=== PATIENT | male | born 1955 | race Caucasian/White ===

== ENCOUNTER 2022-05-14 07:41 | Day surgery (SDC) | payer BC ==
[2022-05-11 16:09] VITALS: BMI 28.8
[~2022-05-14 07:41] MED LIST: ALPRAZolam 0.25 MG TAB PO PRN; ALPRAZolam 0.5 MG TAB PO PRN; ASPIRIN 325 MG TAB PO ONE; ATORVASTATIN 80 MG TAB PO ONE; HEPARIN SODIUM,PORCINE 10,000 UNIT in SODIUM CHLORIDE 0.9% 1,000 ML IRRIGATION PRN; HEPARIN SODIUM,PORCINE 2,500 UNIT in SODIUM CHLORIDE 0.9% 250 ML IRRIGATION PRN; NITROGLYCERIN SL TABS 0.4 MG TAB SUBLINGUAL PRN; SODIUM CHLORIDE 0.9% 1,000 ML in EMPTY BAG 1 BAG IV SCH
[2022-05-14] MEDS ORDERED: SODIUM CHLORIDE 0.9% 1,000 ML IV ONE (08:02)
[2022-05-14] MEDS ORDERED: ASPIRIN 81 MG ONE (08:04)
[2022-05-14 08:20] VITALS: RESP 16; TEMP 97.3
[2022-05-14] MEDS ORDERED: VERAPAMIL 2.5 MG/ML 2 ML AMP ONE (08:35)
[2022-05-14] MEDS ORDERED: fentaNYL (PF) 50 MCG/ML 2 ML AMP ONE (08:51)
[2022-05-14] MEDS ORDERED: HEPARIN SODIUM 1,000 UN/ML (10ML VL) ONE (08:52)
[2022-05-14] MEDS ORDERED: MIDAZOLAM 2 MG/2 ML VIAL IV ONE (09:08)
[2022-05-14] MEDS ORDERED: LIDOCAINE 1% INJ 10MG/ML (5 ML VIAL-PF) SQ ONE ×2 (09:08→09:10)
[2022-05-14] MEDS ORDERED: fentaNYL (PF) 50 MCG/ML 2 ML AMP IV ONE (09:08)
[2022-05-14] MEDS ORDERED: VERAPAMIL SYRINGE (5 MG/10 ML) INTRAARTER ONE (09:12)
[2022-05-14] MEDS ORDERED: HEPARIN SODIUM 1,000 UN/ML (10ML VL) IV ONE (09:15)
[2022-05-14] MEDS ORDERED: IOPAMIDOL-370 125ML BTL INJ ONE (09:21)
--- NOTE | 2022-05-14 09:26 | P.CARDCATH ---
Description of Procedure: PROCEDURES PERFORMED: Left heart catheterization, bilateral coronary angiography INDICATION: Abnormal stress test CONSENT:I have discussed the risks, benefits and alternative therapies for the above-mentioned procedure and for both sedation/analgesia as well as necessary blood product administration, if indicated, as they pertain to this patient. The patient has indicated understanding and acceptance of the risks and procedures discussed. PROCEDURE: After the risks, benefits and alternatives of the above mentioned procedure explained in detail with the patient, informed consent was obtained. Patient was taken to the catheterization lab and prepped and draped in usual fashion. 1% lidocaine was used to anesthetize the right radial artery. A 6- Kazakh sheath was placed in the right radial artery using modified Seldinger technique. Left coronary angiography was performed with a 5-Kazakh JL 3.5 catheter and right coronary angiography was performed with a 5-Kazakh JR5 catheter in various views. A 5-Kazakh FR5 catheter was inserted into the left ventricle and pressure measurements were obtained. The right radial sheath was removed and a TR band was placed with hemostasis achieved. The patient tolerated the procedure well. Patient was transported back to the post catheterization holding area in stable condition. Conscious Sedation: Patient was monitored under the direct supervision of vision of myself for conscious sedation using Versed and fentanyl for a total duration of 10 minutes HEMODYNAMICS: Aortic: 122/78 LV: 130/5, LVEDP 6 SELECTIVE CORONARY ARTERIOGRAPHY: LEFT MAIN: The left main is a large caliber vessel which bifurcates into the LAD and circumflex. There is no significant stenosis. LEFT ANTERIOR DESCENDING CORONARY ARTERY: LAD is a large caliber vessel which wraps around to the apex. There is no significant stenosis. LEFT CIRCUMFLEX CORONARY ARTERY: Left circumflex is a moderate caliber vessel with mid circumflex luminal irregularities up to 20%. RIGHT CORONARY ARTERY: The right coronary artery is a large caliber vessel which gives off a PDA and PLV branch and is the dominant vessel. There is a mid RCA 20-30% stenosis and otherwise normal. FINAL IMPRESSION: 1. Relatively normal coronary arteries with only mild luminal irregularities of the circumflex and RCA, 20-30% 2. Normal left sided filling pressures PLAN: 1. Aggressive risk factor modification per most recent ACC/AHA guidelines. 2. Follow-up in the office in 1-2 weeks.
[2022-05-14 11:53] VITALS: BP 139/82; PULSE 67
== END 2022-05-14 12:09 | disposition home or self-care (01) ==
LOC: CATHCVL 07:41
PROVIDERS: ATTEND Internal Medicine
DX: I25.10 Atherosclerotic heart disease of native coronary artery without angina pectoris (principal); I11.0 Hypertensive heart disease with heart failure; I50.32 Chronic diastolic (congestive) heart failure; R06.00 Dyspnea, unspecified; R07.9 Chest pain, unspecified
CPT/HCPCS: 93458; C1769; C1894; J2250; J2001; J3010; J1644; Q9967

== ENCOUNTER → 2024-06-05 | Outpatient (CLI) | payer MEDICARE, BC ==
--- NOTE | 2024-06-05 17:09 | CT ---
CT right knee, YARELI protocol. HISTORY: Knee pain COMPARISON: None TECHNIQUE: Multiple axial images are obtained through the lower extremities without use of IV contras t material. The exam was performed according to the YARELI protocol FINDINGS: There is moderate narrowing, mild hypertrophic spurring and moderate subchondral sclerosis in the med ial compartment knee consistent with moderate osteoarthritis. There is mild narrowing of the lateral compartment joint space. The patellofemoral compartment joint space is well preserved although there is mild hypertrophic spurring of the patella and femoral condyle. There is mild narrowing, subchondral sclerosis and cyst formation in the right hip. Minimal narrowing and subchondral sclerosis seen in the left hip. The ankles are normal and symmetrical without osteoarthritic change, fracture, dislocation or focal i ntraosseous abnormality. IMPRESSION: 1. Moderate osteoarthritis of the medial compartment knee. 2. Mild osteoarthritis of the patellofemoral and lateral compartments of the right knee. 3. Mild osteoarthritis of the right hip and minimal osteoporosis of the left hip. 4. No significant abnormality of the ankles bilaterally. 5. Moderate to marked osteoarthritis of the medial compartment of the left knee and mild osteoarthrit is of the lateral compartment of the left knee. [facility], Workstation: [id number], 06/05/2024 5:06 PM
--- NOTE | 2024-06-06 08:13 | XR ---
EXAMINATION TYPE: XR chest 2V DATE OF EXAM: 06/05/2024 4:11 PM COMPARISON: None CLINICAL INDICATION: Male, 68 years old with history of R09.89 OTH SYMPTOMS AND SIGNS I; [facility] TECHNIQUE: XR chest 2V Frontal and lateral views of the chest. FINDINGS: Lungs/Pleura: There is flattening of the diaphragm with increased lucency of the lungs. No evidence o f pneumothorax, pleural effusion or focal consolidation. Pulmonary vascularity: Unremarkable. Heart/mediastinum: Cardiomediastinal silhouette is unremarkable. Musculoskeletal: No acute osseous pathology. IMPRESSION: 1. No acute cardiopulmonary disease process. 2. COPD changes. [facility], , 06/06/2024 8:11 AM
== END | disposition home or self-care (01) ==
LOC: RADCTMAIN 15:22
PROVIDERS: ATTEND Orthopaedic Surgery
DX: M21.161 Varus deformity, not elsewhere classified, right knee (principal); R09.89 Other specified symptoms and signs involving the circulatory and respiratory systems; M81.0 Age-related osteoporosis without current pathological fracture; M16.11 Unilateral primary osteoarthritis, right hip; M17.0 Bilateral primary osteoarthritis of knee
CPT/HCPCS: 71046

== ENCOUNTER → 2024-06-26 | Outpatient (CLI) | payer MEDICARE, BC ==
[2024-06-26 10:26] LABS: Partial Thromboplastin Time 22.6 sec (22.0-30.0); Prothrombin Time 10.7 sec (10.0-12.5)
[2024-06-26 19:04] LABS: HCT 45.3 % (39.6-50.0); HGB 14.7 g/dL (13.0-17.0); MCH 31.2 pg (27.0-32.0); MCHC 32.5 g/dL (32.0-37.0); MCV 96.2 FL (80.0-97.0); Mean Platelet Volume 9.4 FL (9.5-12.2); NRBC Per 100 WBC 0 X 10*3/uL (0.00-0.01); Platelet Count 369 X 10*3/uL (140-440); RBC 4.71 X 10*6/uL (4.40-5.60); RDW 12.1 % (11.5-14.5); WBC 5.91 X 10*3/uL (4.50-10.00)
[2024-06-26 19:39] LABS: ALT 19 U/L (10-49); AST 23 U/L (14-35); Albumin 4.1 g/dL (3.8-4.9); Albumin/Globulin Ratio 1.46 Ratio (1.60-3.17); Alkaline Phosphatase 84 U/L (41-126); BUN/Creat Ratio 15.44 Ratio (12.00-20.00); Blood Urea Nitrogen 13.9 mg/dL (9.0-27.0); Chloride 102 mmol/L (96-109); Chol/HDL Ratio 2.87 Ratio; Globulin 2.8 g/dL (1.6-3.3); Glucose 100 mg/dL (70-110); LDL Cholesterol,Calculated 93.1 mg/dL (0.0-131.0); Potassium 4.8 mmol/L (3.5-5.5); Sodium 140 mmol/L (135-145); Total Bilirubin 0.4 mg/dL (0.3-1.2); Total Protein 6.9 g/dL (6.2-8.2); VLDL Calculation 15.84 mg/dL (5.00-40.00)
== END | disposition home or self-care (01) ==
LOC: LABPAT 09:14
PROVIDERS: ATTEND Orthopaedic Surgery
DX: Z01.812 Encounter for preprocedural laboratory examination (principal); Z13.220 Encounter for screening for lipoid disorders; Z22.322 Carrier or suspected carrier of Methicillin resistant Staphylococcus aureus; E11.9 Type 2 diabetes mellitus without complications; M17.11 Unilateral primary osteoarthritis, right knee
CPT/HCPCS: 80053; 80061; 83036; 85027; 85610; 85730; 87070; 93005

== ENCOUNTER 2024-07-13 08:01 | Day surgery (SDC) | payer MEDICARE, BC ==
[~2024-07-13 08:01] MED LIST changes: -ALPRAZolam 0.25 MG TAB PO PRN; -ALPRAZolam 0.5 MG TAB PO PRN; -ASPIRIN 325 MG TAB PO ONE; -ATORVASTATIN 80 MG TAB PO ONE; -HEPARIN SODIUM,PORCINE 10,000 UNIT in SODIUM CHLORIDE 0.9% 1,000 ML IRRIGATION PRN; -HEPARIN SODIUM,PORCINE 2,500 UNIT in SODIUM CHLORIDE 0.9% 250 ML IRRIGATION PRN; +HYDROmorphone 0.5 MG/0.5 ML SYRINGE IVP PRN; -NITROGLYCERIN SL TABS 0.4 MG TAB SUBLINGUAL PRN; -SODIUM CHLORIDE 0.9% 1,000 ML in EMPTY BAG 1 BAG IV SCH; +TRANEXAMIC 1,000 MG/100ML-NACL 1,000 MG in SALINE 1 100ML.BAG IV PRN; +TRANEXAMIC 1,000 MG/100ML-NACL 1,000 MG in SALINE 1 100ML.BAG IVPB PRN
[2024-07-13] MEDS: IV FLUID CONTINUATION 1,000 ML IV ONE (08:20)
[2024-07-13] MEDS: oxyCODONE ER 10 MG TAB.ER.12H PO PRN (08:56)
[2024-07-13] MEDS: ACETAMINOPHEN TAB 500 MG TAB PO PRN (08:57)
[2024-07-13] MEDS: KETOROLAC 15 MG/ML 1 ML VIAL IVP PRN (08:57)
[2024-07-13] MEDS: FAMOTIDINE 20 MG/2 ML VIAL IVP PRN (08:57)
[2024-07-13] MEDS: DOCUSATE 100 MG CAP PO PRN (08:57)
[2024-07-13] MEDS: DEXAMETHASONE SOD PHOSPHATE 10 MG/ML 1 ML VIAL IV PRN (08:57)
[2024-07-13] MEDS: LACTATED RINGERS 1,000 ML IV SCH (08:58)
[2024-07-13] MEDS: ONDANSETRON 4 MG/2 ML VIAL IVP PRN (08:58)
[2024-07-13] MEDS: MIDAZOLAM 2 MG/2 ML VIAL IV PRN (09:22)
[2024-07-13] MEDS: fentaNYL (PF) 50 MCG/ML 2 ML AMP IVP STA (09:22)
[2024-07-13] MEDS ORDERED: KETAMINE HCL IN 0.9 % NACL 50 MG/5 ML SYRINGE ONE (09:36)
[2024-07-13] MEDS ORDERED: TRANEXAMIC 1,000 MG/100ML-NACL PREMIX BAG ONE (09:36)
[2024-07-13] MEDS ORDERED: LIDOCAINE 1% INJ 10MG/ML (20 ML MDV) ONE (09:36)
[2024-07-13] MEDS ORDERED: PROPOFOL 10 MG/ML 20 ML VIAL IV ONE (09:36)
[2024-07-13] MEDS ORDERED: GLYCOPYRROLATE 0.2 MG/ML 2 ML VIAL ONE (09:36)
[2024-07-13] MEDS ORDERED: ROCURONIUM 10 MG/ML (5 ML VIAL) IV ONE (09:36)
[2024-07-13] MEDS ORDERED: DEXAMETHASONE SOD PHOSPHATE 4 MG/ML 1 ML VIAL ONE (09:36)
[2024-07-13] MEDS ORDERED: SUCCINYLCHOLINE CHLORIDE 200 MG/10 ML VIAL IV ONE (09:36)
[2024-07-13] MEDS ORDERED: MIDAZOLAM 2 MG/2 ML VIAL ONE (09:36)
[2024-07-13] MEDS ORDERED: fentaNYL (PF) 50 MCG/ML 2 ML AMP ONE (09:36)
[2024-07-13] MEDS ORDERED: PHENYLEPHRINE-0.9% NACL SYG 1,000 MCG/10 ML SYRINGE ONE (09:36)
[2024-07-13] MEDS ORDERED: ROPIVACAINE 5 MG/ML 30 ML VIAL ONE (09:36)
[2024-07-13] MEDS ORDERED: NEOSTIGMINE 1 MG/ML 10 ML VIAL ONE (09:36)
[2024-07-13] MEDS: LACTATED RINGERS 1,000 ML IV ONE (09:57)
[2024-07-13] MEDS: ROPIVACAINE/EPI/CLONIDINE/KET 50 ML SYRINGE MISCELLANE PRN (10:05)
[2024-07-13] MEDS ORDERED: MAGNESIUM HYDROXIDE 2,400 MG/30 ML CUP PO PRN (11:27)
[2024-07-13] MEDS ORDERED: TEMAZEPAM 15 MG CAP PO PRN (11:27)
[2024-07-13] MEDS ORDERED: NA PHOS,M-B/NA PHOS,DI-BA 133 ML ENEMA RECTAL PRN (11:27)
[2024-07-13] MEDS ORDERED: bisacodyL 10 MG SUPP RECTAL PRN (11:27)
[2024-07-13] MEDS ORDERED: NALOXONE 0.4 MG/ML 1 ML VIAL IV PRN (11:27)
[2024-07-13] MEDS ORDERED: ONDANSETRON 4 MG/2 ML VIAL IVP PRN (11:27)
[2024-07-13] MEDS ORDERED: diazePAM 5 MG TAB PO PRN ×2 (11:27)
[2024-07-13] MEDS ORDERED: HYDROcodone/APAP 10-325MG 1 EACH TAB PO PRN (11:27)
[2024-07-13] MEDS ORDERED: HYDROmorphone 0.5 MG/0.5 ML SYRINGE IVP PRN ×3 (11:27)
[2024-07-13] MEDS ORDERED: hydrOXYzine pamoate 25 MG CAP PO PRN (11:27)
--- NOTE | 2024-07-13 11:27 | P.OP ---
Date of Procedure: 07/13/24 Preoperative Diagnosis: Severe right knee osteoarthritis Postoperative Diagnosis: Same Procedure(s) Performed: 1. Right total knee arthroplasty 2. Computer assisted musculoskeletal navigation using CT/MRI images Implants: 1. Palmer Triathlon CR Femur Size #6 2. Palmer Triathlon Franklin Tibial Base Size #7 3. [place]e Triathlon CS poly Size #7, 9-mm 4. Mc[place]e Triathlon all poly patella, Size #32 Anesthesia: [place]IN[place]O, regional Surgeon: Giorgio Linder Customer Greeter #1: Tone Anderson Estimated Blood Loss (ml): 100 IV fluids (ml): 800 Pathology: none sent Condition: stable Disposition: PACU Indications for Procedure: I met with the patient preoperatively in the office setting and discussed treatment of their symptomatic knee arthritis. They failed a long course of nonsurgical treatment and elected to proceed with an elective total knee replacement. I discussed the potential risks and complications at length and gave them ample time to ask questions. Risks discussed included: risks from anesthesia, superficial site surgical infection, acute and/or chronic periprosthetic joint infection, delayed wound healing, drainage, wound necrosis, instability, stiffness, stiffness requiring manipulation and/or revision surgery, damage to local blood vessels or nerves, aseptic loosening of the implants, extensor mechanism issues including disruption, patellar maltracking, avascular necrosis etc., continued or worsened knee pain, generalized dissatisfaction with surgical outcome, need for revision surgery, an inability to regain preinjury level of function, DVT, PE, other medical complications, and possibly loss of life or limb. The patient voiced their understanding that while these are the most common complications other less common complications are possible. They provided both their verbal and written consent to go forward with surgery. Operative Findings: Severe tricompartmental osteoarthritis with partially passively correctable varus deformity Description of Procedure: The patient was identified in preoperative holding and the correct operative extremity was verified and marked with a marker. I reviewed the consent form with the patient at length. All of their questions were answered. The patient was given a block by anesthesia. They were then brought back to the operating room. They were transferred onto the operating room table where a general anesthetic, preoperative antibiotics, and tranexamic acid were administered by anesthesia. A tourniquet was applied to the proximal aspect of the operative extremity. The contralateral extremity was padded under the heel and secured to the operating room table with a nonsterile blue towel and tape. The ipsilateral arm was carefully draped across the patient's chest and secured with a pillow and foam. A post was applied over the lateral aspect of the ipsilateral thigh and a bolster was placed under the ipsilateral foot. I verified that the operative extremity was stable and the knee was flexed to 90. The operative extremity was then placed in a leg broussard, nonsterile drapes were applied, and the extremity was prepped and draped sterilely in the standard sterile fashion. Prior to starting surgery timeout was performed identifying the correct patient, operative extremity, and procedure. The leg was then elevated, exsanguinated with an Esmarch bandage, and the tourniquet was inflated. An anterior midline incision was made sharply with a scalpel. Once I had dissected deep to the superficial fascial layer medial and lateral flaps were elevated. A medial parapatellar arthrotomy was created. Upon opening the knee joint there were diffuse arthritic changes in all 3 compartments. The anterior horn of the medial meniscus were sharply released and a medial release was performed around the posterior medial corner of the knee to facilitate retractor placement. The fat pad was excised with electrocautery. The patella was found to be severely arthritic and a provisional cut was made with a sagittal saw to facilitate mobilization of the extensor mechanism during the procedure. Remnants of the ACL and PCL were then excised from the notch. 4 mm pins were then placed within the incision in the medial distal femur and proximal tibia. Arrays were applied to the pins and I verified they were completely tightened. The knee was then registered with the Traxer robot and manipulations in implant position were made to balance the knee and opitmize implant position. Using the Malcolm robotic saw all cuts were made in accordance with our plan. After all bony fragments had been removed the cuts were verified with the planar probe. The tibia was then subluxed forward and sized. The knee was brought into flexion and a lamina veterinary milk specialist was placed to allow removal of the meniscal remnants both medially and laterally as well as posterior osteophytes. Local anesthetic was then infiltrated around the joint capsule. Trial implants were then placed within the knee. Range of motion and collateral ligament tension was then evaluated. Adjustments in implant size and position were then made accordingly. Once the knee was felt to be appropriately balanced the Malcolm pins were removed. The patella was then recut, sized, and punched. A trial patellar button was then placed. With the trial components in place, the patella tracked midline. The femur was then drilled and the trial component removed. The trial tibial component was then appropriately rotated, pinned, and prepared for the keel. All trial components were then removed from the knee. The knee was thoroughly irrigated with pulsatile lavage. Cement was prepared via vacuum mixing in a bowl on the back table. I then hand pressurized cement into the femur and tibia and placed the implants beginning with the tibial base tray and poly liner, femoral component, and finally the patellar button. All extruded cement was removed including from the pin sites. Once the cement had hardened the knee was evaluated one final time with the final polyethylene liner in place. The knee had full extension and flexion and felt stable to varus and valgus stress throughout the arc of motion. The tourniquet was released and with the tourniquet down the patella tracked midline. All bleeders were controlled with electrocautery. The knee was then soaked for 3 minutes with a dilute Betadine soak. The knee was thoroughly irrigated using 3 L of sterile saline and pulsatile lavage. A deep drain was placed. The extensor mechanism was then reapproximated using pop off Vicryl sutures followed by a running barbed suture. The knee was then closed in layers with a 0 strata fix for the deep fascial layer, 2-0 strata fix for the superficial subcutaneous layer and Monocryl and Steri-Strips for the skin. A sterile dressing and drain sponge were applied. I verified that all instrument, sponge, and sharp counts were correct. The patient was then transferred off the operating room table, extubated, and brought to recovery having tolerated the procedure well. Tone Anderson PA-C was required as a skilled animal assistant due to the complexity of surgery for patient positioning, draping, exposure, retraction, closure of wound and application of dressing. PLAN: The patient can weight-bear as tolerated on the operative extremity. DVT prophylaxis with aspirin 81 mg twice a day based on preoperative risk stratification. Follow-up in the office in 2 weeks for wound check and x-rays of the knee including an AP and lateral.
--- NOTE | 2024-07-13 12:13 | P.ANPRN ---
Procedure Note - Anesthesia - Nerve Block Performed Right iPack Single Time Out Performed: Yes Date of Procedure: 07/13/24 Procedure Start Time: Procedure Stop Time: Location of Patient: PreOp Indication: Acute Post-Operative Pain, Analgesia, Requested by Surgeon Sedation Type: Sedate with meaningful contact maintained Preparation: Sterile Prep Position: Left Lateral Catheter: None Needle Types: Pajunk Needle Gauge: 21 Ultrasound used to visualize needle placement: Yes Ultrasound used to observe medication spread: Yes Injectate: 0.5% Ropivacaine (see comment for volume) ([id number] (Resident)) Blood Aspirated: No Pain Paresthesia on Injection Noted: No Resistance on Injection: Normal Image Stored and Saved: Yes Events: Uneventful and Well Tolerated
--- NOTE | 2024-07-13 12:14 | P.ANPRN ---
Procedure Note - Anesthesia - Nerve Block Performed Right Adductor Canal Single Time Out Performed: Yes Date of Procedure: 07/13/24 Procedure Start Time: Procedure Stop Time: :32 Location of Patient: PreOp Indication: Acute Post-Operative Pain, Analgesia, Requested by Surgeon Sedation Type: Sedate with meaningful contact maintained Preparation: Sterile Prep Position: Supine Catheter: None Needle Types: Pajunk Needle Gauge: 21 Ultrasound used to visualize needle placement: Yes Ultrasound used to observe medication spread: Yes Injectate: 0.5% Ropivacaine (see comment for volume) (Ropiv [id number] (Resident)) Blood Aspirated: No Pain Paresthesia on Injection Noted: No Resistance on Injection: Normal Image Stored and Saved: Yes Events: Uneventful and Well Tolerated
--- NOTE | 2024-07-13 12:28 | XR ---
EXAMINATION TYPE: XR knee limited RT DATE OF EXAM: 07/13/2024 12:17 PM COMPARISON: None. CLINICAL INDICATION: Male, 68 years old with history of Evaluation for Postop abnormality and alignme nt, pain TECHNIQUE: 2 view(s) obtained. FINDINGS: Tibial and femoral components have been placed. No acute fractures or dislocations evident. Surgical soft tissue changes are present. IMPRESSION: 1. No acute osseous abnormality right knee post prosthesis placement [facility], , 07/13/2024 12:26 PM
[2024-07-13] MEDS: SODIUM CHLORIDE 0.9% 1,000 ML IV SCH (16:34)
--- NOTE | 2024-07-13 19:00 | P.CONS ---
History of Present Illness - Reason for Consult Consult date: 07/13/24 - Chief Complaint medical management - History of Present Illness 68-year-old male with medical history nicotine use disorder, osteoarthritis presented for elective TKA. Medicine was consulted for medical management. Patient has no complaints at this time, feels very well after surgery. He is tolerating a diet. Otherwise has no complaints. Patient is hemodynamically stable and is on room air. No lab work to review. Postoperative knee x-ray shows no acute osseous abnormality of right knee post prosthesis placement. All Systems reviewed and pertinent positives and negatives noted in HPI, all other symptoms are negative Gen: In NAD, non-toxic HEENT: normocephalic, atraumatic, hearing acuity is intant, mucous membranes moist CVS: perfusing all extremities well, no pitting edema, Respiratory: symmetric chest expansion, no accessory muscle use, GI: soft, NTTP, ND, : no suprapubic tenderness, no CVA tenderness MSK/Derm: no rashes, cyanosis Neuro: CN II-XII intact, no motor weakness, Psych: cooperative, euthymic mood, judgment and insight is intact Assessment/plan: Nicotine use disorder -NRT at request -Cessation counseling, noted in H&P that patient quit in September 2023, but still has high risk of relapse, would recommend ongoing encouragement at cessation and readdressing this with PCP Status post TKA -Pain control per primary team Thank you for this consult. Please reach out with any further questions or concerns. Past Medical History Past Medical History: Hyperlipidemia, Hypertension, Osteoarthritis (OA) Additional Past Medical History / Comment(s): no longer takes BP med, occasional swelling in extremities-not currently History of Any Multi-Drug Resistant Organisms: None Reported Past Surgical History: Heart Catheterization, Hernia Repair Additional Past Surgical History / Comment(s): colonoscopy, cataracts removed Past Anesthesia/Blood Transfusion Reactions: No Reported Reaction Past Psychological History: No Psychological Hx Reported Smoking Status: Former smoker Past Alcohol Use History: Daily Additional Past Alcohol Use History / Comment(s): quit smoking October 10, 2023 1-1 1/2 ppd, couple beers per day Past Drug Use History: None Reported - Past Family History Mother Family Medical History: Cancer Medications and Allergies Home Medications Medication Instructions Recorded Confirmed Type Aspirin [Children's Aspirin] 81 mg PO DAILY 05/11/22 07/13/24 History Furosemide [Lasix] 20 mg PO DAILY 05/11/22 07/13/24 History Nicotine Polacrilex [Nicotine 2 mg BC DIRECTED 07/11/24 07/13/24 History Lozenge] Ibuprofen [Motrin] 400 mg PO Q6HR PRN 07/12/24 07/13/24 History Aspirin 81 mg PO BID #60 tab 07/13/24 Rx Diclofenac Sodium [Voltaren] 75 mg PO BID #60 tab 07/13/24 Rx Docusate [Colace] 100 mg PO BID #60 capsule 07/13/24 Rx HYDROcodone/APAP 5-325MG [[place] 1 - 2 tab PO Q6HR PRN #56 tab 07/13/24 Rx 5-325] Omeprazole [PriLOSEC] 40 mg PO DAILY #30 cap 07/13/24 Rx Allergies Allergy/AdvReac Type Severity Reaction Status Date / Time No Known Allergies Allergy Verified 07/11/24 08:52 Physical Exam Osteopathic Statement: *. No significant issues noted on an osteopathic structural exam other than those noted in the History and Physical/Consult. Vitals: Vital Signs Temp Pulse Resp BP Pulse Ox 07/13/24 13:30 97.9 F 72 17 172/83 93 L 07/13/24 13:15 78 18 149/83 95 07/13/24 13:00 79 16 152/81 96 07/13/24 12:45 84 16 155/81 95 07/13/24 12:30 85 16 159/79 96 07/13/24 12:15 86 16 150/74 98 07/13/24 12:00 92 16 144/75 98 07/13/24 11:54 97.8 F 89 14 160/77 100 07/13/24 09:37 72 16 118/65 95 07/13/24 08:28 97.4 F L 106 H 16 166/88 93 L Intake and Output 07/13/24 07/13/24 07/13/24 06:59 14:59 22:59 Intake Total 1900 250 Output Total 100 Balance 1800 250 Intake: IV 1700 Oral 200 250 Output: Estimated Blood Loss 100 Other: # Voids 1 Weight 93.9 kg
[2024-07-13] MEDS: BENZOCAINE/MENTHOL LOZENG 1 EACH LOZENGE MUCOUS MEM PRN (20:03)
[2024-07-13] MEDS: ASPIRIN 81 MG PO SCH (20:03)
[2024-07-13] MEDS: SENNOSIDES-DOCUSATE SODIUM 1 EACH TAB PO SCH (20:03)
[2024-07-14] MEDS: HYDROcodone/APAP 5-325MG 1 EACH TAB PO PRN (01:24)
[2024-07-14 03:00] VITALS: RESP 16
[2024-07-14 08:01] VITALS: BP 148/70; PULSE 83; TEMP 98.2
--- NOTE | 2024-07-14 08:22 | P.DS ---
Providers Date of admission: 07/13/2024 Attending physician: Giorgio Linder Consults: 07/13/24 11:27 Consult Physician Routine Consulting Provider: Dorota Colon Consult Reason/Comments: post op medical management Do you want consulting provider notified?: Yes Primary care physician: Sally Romero MD Hospital Course: The patient is a very pleasant 68-year-old male who was admitted under my care yesterday and underwent an uncomplicated total knee replacement. Following surgery he was transferred to the orthopedic floor. He received 2 doses of postoperative antibiotics. He was transitioned from IV to oral pain medication. He was started on aspirin for DVT prophylaxis. He was seen on postoperative day #1 and was doing well. He was alert and oriented. He was in no apparent distress. A focused exam of the operative extremity was conducted. There was an intact dressing with no drainage or strikethrough. There was moderate swelling in the knee. His thigh and calf are soft. Femoral nerve function was intact. He was able to actively plantarflex and dorsiflex his ankle and his toes. He worked with physical therapy and did well. He was ultimately cleared for discharge home. Plan - Discharge Summary Discharge Rx Participant: No New Discharge Prescriptions: New Diclofenac Sodium [Voltaren] 75 mg PO BID #60 tab Omeprazole [PriLOSEC] 40 mg PO DAILY #30 cap Aspirin 81 mg PO BID #60 tab Docusate [Colace] 100 mg PO BID #60 capsule HYDROcodone/APAP 5-325MG [[place] 5-325] 1 - 2 tab PO Q6HR PRN #56 tab PRN Reason: Pain No Action Furosemide [Lasix] 20 mg PO DAILY Nicotine Polacrilex [Nicotine Lozenge] 2 mg BC DIRECTED Ibuprofen [Motrin] 400 mg PO Q6HR PRN PRN Reason: Pain Aspirin [Children's Aspirin] 81 mg PO DAILY Discharge Medication List Aspirin [Children's Aspirin] 81 mg PO DAILY 05/11/22 [History] Furosemide [Lasix] 20 mg PO DAILY 05/11/22 [History] Nicotine Polacrilex [Nicotine Lozenge] 2 mg BC DIRECTED 07/11/24 [History] Ibuprofen [Motrin] 400 mg PO Q6HR PRN 07/12/24 [History] Aspirin 81 mg PO BID #60 tab 07/13/24 [Rx] Diclofenac Sodium [Voltaren] 75 mg PO BID #60 tab 07/13/24 [Rx] Docusate [Colace] 100 mg PO BID #60 capsule 07/13/24 [Rx] HYDROcodone/APAP 5-325MG [[place] 5-325] 1 - 2 tab PO Q6HR PRN #56 tab 07/13/24 [Rx] Omeprazole [PriLOSEC] 40 mg PO DAILY #30 cap 07/13/24 [Rx] Follow up Appointment(s)/Referral(s): [facility] [NON-STAFF] - As Needed (walker) [facility] [NON-STAFF] - As Needed Giorgio Linder MD [Medical Doctor] - 2 Weeks Activity/Diet/Wound Care/Special Instructions: 1. Weight-bear as tolerated on your operative extremity unless instructed otherwise. Use a walker or other assistive device to ambulate. 2. Leave surgical dressing in place. If your dressing becomes saturated with blood, there is drainage, or the dressing becomes loose please contact the office. 3. It is okay to shower with your surgical dressing, but do not submerge in water (no hot tubs, bath's, swimming etc.) 4. Make sure to take her blood clot prevention medication as prescribed (aspirin, Eliquis, Xarelto, and Plavix are commonly prescribed medications for blood clot prevention) 5. While taking [place] or Percocet for pain make sure you're taking a stool softener (Colace) and drink lots of water. 6. Keep all follow-up appointments as scheduled. You will usually be seen in 1-2 weeks following surgery. 7. Please contact the office with any questions or concerns [phone] Discharge Disposition: HOME WITH HOME HEALTH SERVICES
[2024-07-14 10:01] LABS: HCT 37.8 % (39.6-50.0); HGB 12.4 g/dL (13.0-17.0); MCH 31.3 pg (27.0-32.0); MCHC 32.8 g/dL (32.0-37.0); MCV 95.5 FL (80.0-97.0); Mean Platelet Volume 9.5 FL (9.5-12.2); NRBC Per 100 WBC 0 X 10*3/uL (0.00-0.01); Platelet Count 391 X 10*3/uL (140-440); RBC 3.96 X 10*6/uL (4.40-5.60); WBC 14.72 X 10*3/uL (4.50-10.00)
[2024-07-14 10:02] LABS: Basophils # (A) 0 X 10*3/uL (0.00-0.10); Basophils % (A) 0 %; Eosinophils # (A) 0 X 10*3/uL (0.04-0.35); Eosinophils % (A) 0 %; Lymphocytes # (A) 1.23 X 10*3/uL (0.90-5.00); Lymphocytes % (A) 8.4 %; Monocytes # (A) 1.03 X 10*3/uL (0.20-1.00); Neutrophils % (A) 84.2 %
== END 2024-07-14 10:33 | disposition home health service (06) ==
LOC: OR 08:01 → 4SSUR 11:45 → OR 07-14 10:33
PROVIDERS: ATTEND Orthopaedic Surgery
DX: M17.11 Unilateral primary osteoarthritis, right knee (principal); G89.18 Other acute postprocedural pain; I11.0 Hypertensive heart disease with heart failure; I50.32 Chronic diastolic (congestive) heart failure; I25.10 Atherosclerotic heart disease of native coronary artery without angina pectoris; E78.5 Hyperlipidemia, unspecified; Z98.890 Other specified postprocedural states; Z87.891 Personal history of nicotine dependence; Z79.899 Other long term (current) drug therapy; Z79.82 Long term (current) use of aspirin; Z79.1 Long term (current) use of non-steroidal anti-inflammatories (NSAID)
CPT/HCPCS: 0055T; 27447; 64447; 64999; 85025

== ENCOUNTER 2024-12-14 17:15 | Emergency (ER) | payer MEDICARE, BC ==
--- NOTE | 2024-12-14 17:44 | ED ---
General Adult HPI - General Chief complaint: Chest Pain Stated complaint: Chest pain Time Seen by Provider: 12/14/24 17:19 Source: patient, EMS, RN notes reviewed, old records reviewed Mode of arrival: EMS Limitations: no limitations - History of Present Illness Initial comments: 68-year-old male presenting for evaluation of a brief episode of left-sided chest pain. Patient has no prior history of CAD. Patient states that approximately 2 hours prior to arrival he developed nonradiating left-sided chest pain. Patient does report baseline dyspnea which is unchanged from previous and he was a longtime smoker. No cough. No fever. No diaphoresis or vomiting. Pain completely resolved at the time my evaluation. - Related Data Home Medications Medication Instructions Recorded Confirmed Aspirin [Children's Aspirin] 81 mg PO DAILY 05/11/22 12/14/24 Furosemide [Lasix] 20 mg PO DAILY PRN 05/11/22 12/14/24 Albuterol Inhaler [Ventolin Hfa 2 puff INHALATION RT-Q4H PRN 12/14/24 12/14/24 Inhaler] HYDROcodone/APAP 5-325MG [[place] 1 tab PO Q6H PRN 12/14/24 12/14/24 5-325] Nicotine Polacrilex [Nicorette] 4 mg BC Q1H PRN 12/14/24 12/14/24 Allergies Allergy/AdvReac Type Severity Reaction Status Date / Time No Known Allergies Allergy Verified 12/14/24 19:14 Review of Systems ROS Statement: Those systems with pertinent positive or pertinent negative responses have been documented in the HPI. ROS Other: All systems not noted in ROS Statement are negative. Past Medical History Past Medical History: Hypertension History of Any Multi-Drug Resistant Organisms: None Reported Past Surgical History: Hernia Repair Additional Past Surgical History / Comment(s): knee replacement rigth knee Past Anesthesia/Blood Transfusion Reactions: No Reported Reaction Past Psychological History: No Psychological Hx Reported Smoking Status: Current some day smoker Past Alcohol Use History: Occasional Past Drug Use History: None Reported - Past Family History Mother Family Medical History: Cancer General Exam Limitations: no limitations General appearance: alert, in no apparent distress Head exam: Present: atraumatic, normocephalic Eye exam: Present: normal appearance, PERRL ENT exam: Present: normal exam Neck exam: Present: normal inspection. Absent: tenderness, meningismus Respiratory exam: Present: decreased breath sounds. Absent: respiratory distress Cardiovascular Exam: Present: regular rate, normal rhythm GI/Abdominal exam: Present: soft. 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 Medical Decision Making - Medical Decision Making Was pt. sent in by a medical professional or institution (, PA, SERVICE [employer] FOREMAN, urgent care, hospital, or retirement...) When possible be specific @ -No Did you speak to anyone other than the patient for history (EMS, parent, family, police, friend...)? What history was obtained from this source @ -No Did you review nursing and triage notes (agree or disagree)? Why? @ -I reviewed and agree with nursing and triage notes Were old charts reviewed (outside hosp., previous admission, EMS record, old EKG, old radiological studies, urgent care reports/EKG's, retirement records)? Report findings @ -No old charts were reviewed Differential Chest Pain: Stable Angina, Unstable Angina, STEMI, NSTEMI Aortic Dissection, Pneumothorax, Musculoskeletal, Esophageal Spasm GERD, Cholecystitis, Pancreatitis, Zoster, this is not meant to be an all-inclusive list. EKG interpreted by me (3pts min.). @Sinus rhythm rate of 74, PA interval 197, QRS duration 120, QTc 426. No ST segment elevation. X-rays interpreted by me (1pt min.). @ -[Chest x-ray negative for acute cardiopulmonary findings CT interpreted by me (1pt min.). @ -CT of the chest shows possible thymoma and pulmonary nodule, no pulmonary embolism. Patient is informed of these results and requested to follow-up closely with his primary care provider regarding these results. U/S interpreted by me (1pt. min.). @ -None done What testing was considered but not performed or refused? (CT, X-rays, U/S, labs)? Why? @ -None What meds were considered but not given or refused? Why? @ -None Did you discuss the management of the patient with other professionals (professionals i.e. , PA, [employer]ICE [employer]EMAN, lab, RT, psych nurse, psychologist social, sewing machine operator, teacher, protective officer, lining caser)? Give summary @ -No Was smoking cessation discussed for >3mins.? @ -No Was critical care preformed (if so, how long)? @ -No Were there social determinants of health that impacted care today? How? (Homelessness, low income, unemployed, alcoholism, drug addiction, transportation, low edu. Level, literacy, decrease access to med. care, shelter, rehab)? @ -No Was there de-escalation of care discussed even if they declined (Discuss DNR or withdrawal of care, Hospice)? DNR status @ -No What co-morbidities impacted this encounter? (DM, HTN, Smoking, COPD, CAD, Cancer, CVA, ARF, Chemo, Hep., AIDS, mental health diagnosis, sleep apnea, morbid obesity)? @ -Former smoker, likely COPD Was patient admitted / discharged? Hospital course, mention meds given and route, prescriptions, significant lab abnormalities, going to OR and other pertinent info. @ -[68-year-old male with an episode of chest pain which was resolved at the time my evaluation and remains resolved. Patient's EKG is sinus rhythm without ST segment elevation. Chest x-ray is clear. He did have a positive D-dimer and CT angiography was ordered which was negative for PE. Incidental findings as noted above. Patient had a negative initial troponin. I did plan to admit this patient for serial cardiac enzymes, telemetry, cardiology consultation. Patient declines. States he feels good and wishes to be discharged. He is informed of the risks. He states he will follow closely with his primary care provider and return with the return of any symptoms. Undiagnosed new problem with uncertain prognosis? @ -No Drug Therapy requiring intensive monitoring for toxicity (Heparin, Nitro, Insulin, Cardizem)? @ -No Were any procedures done? @ -No Diagnosis/symptom? @ -Chest pain Acute, or Chronic, or Acute on Chronic? @ -Acute Uncomplicated (without systemic symptoms) or Complicated (systemic symptoms)? @ -Default Side effects of treatment? @ -No Exacerbation, Progression, or Severe Exacerbation? @ -No Poses a threat to life or bodily function? How? (Chest pain, [place], SD, pneumonia, PE, COPD, DKA, ARF, appy, cholecystitis, CVA, Diverticulitis, Homicidal, Suicidal, threat to staff... and all critical care pts) @ -Yes, moderate risk, ACS - Lab Data Result diagrams: 12/14/24 17:51 12/14/24 17:51 Lab Results 12/14/24 12/14/24 12/14/24 Range/Units 17:51 17:51 17:51 WBC 12.05 H (4.50-10.00) 10*3/uL RBC 4.86 (4.40-5.60) 10*6/uL Hgb 15.2 (13.0-17.0) g/dL Hct 44.8 (39.6-50.0) % MCV 92.2 (80.0-97.0) fL MCH 31.3 (27.0-32.0) pg MCHC 33.9 (32.0-37.0) g/dL Plt Count 302 (140-440) 10*3/uL MPV 9.0 L (9.5-12.2) fL Immature Gran % (Auto) 0.3 % Neutrophils % 85.5 % Lymphocytes % 8.3 % Monocytes % 4.6 % Eosinophils % 0.8 % Basophils % 0.5 % Immature Gran # 0.04 (0.00-0.04) 10*3/uL Neutrophils # 10.30 H (1.80-7.70) 10*3/uL Lymphocytes # 1.00 (0.90-5.00) 10*3/uL Monocytes # 0.55 (0.20-1.00) 10*3/uL Eosinophils # 0.10 (0.04-0.35) 10*3/uL Basophils # 0.06 (0.00-0.10) 10*3/uL PT 11.0 (10.0-12.5) sec INR 1.0 (<1.2) APTT 22.5 (22.0-30.0) sec D-Dimer 1.24 H (<0.60) mg/L FEU Sodium 135 L (137-145) mmol/L Potassium 4.7 (3.5-5.1) mmol/L Chloride 97 L (98-107) mmol/L Carbon Dioxide 30 (22-30) mmol/L Anion Gap 8 mmol/L BUN 13 (9-20) mg/dL Creatinine 0.77 (0.66-1.25) mg/dL Est GFR (CKD-EPI)AfAm >90 (>60 ml/min/1.73 sqM) Est GFR (CKD-EPI)NonAf >90 (>60 ml/min/1.73 sqM) Glucose 97 (74-99) mg/dL Calcium 8.9 (8.4-10.2) mg/dL Magnesium 1.9 (1.6-2.3) mg/dL Total Bilirubin 1.0 (0.2-1.3) mg/dL AST 126 H (17-59) U/L ALT 61 H (4-49) U/L Alkaline Phosphatase 103 (38-126) U/L Troponin I (0.000-0.034) ng/mL NT-Pro-B Natriuret Pep 106 pg/mL Total Protein 7.4 (6.3-8.2) g/dL Albumin 4.1 (3.5-5.0) g/dL 12/14/ Range/Units 17:51 WBC (4.50-10.00) 10*3/uL RBC (4.40-5.60) 10*6/uL Hgb (13.0-17.0) g/dL Hct (39.6-50.0) % MCV (80.0-97.0) fL MCH (27.0-32.0) pg MCHC (32.0-37.0) g/dL Plt Count (140-440) 10*3/uL MPV (9.5-12.2) fL Immature Gran % (Auto) % Neutrophils % % Lymphocytes % % Monocytes % % Eosinophils % % Basophils % % Immature Gran # (0.00-0.04) 10*3/uL Neutrophils # (1.80-7.70) 10*3/uL Lymphocytes # (0.90-5.00) 10*3/uL Monocytes # (0.20-1.00) 10*3/uL Eosinophils # (0.04-0.35) 10*3/uL Basophils # (0.00-0.10) 10*3/uL PT (10.0-12.5) sec INR (<1.2) APTT (22.0-30.0) sec D-Dimer (<0.60) mg/L FEU Sodium (137-145) mmol/L Potassium (3.5-5.1) mmol/L Chloride (98-107) mmol/L Carbon Dioxide (22-30) mmol/L Anion Gap mmol/L BUN (9-20) mg/dL Creatinine (0.66-1.25) mg/dL Est GFR (CKD-EPI)AfAm (>60 ml/min/1.73 sqM) Est GFR (CKD-EPI)NonAf (>60 ml/min/1.73 sqM) Glucose (74-99) mg/dL Calcium (8.4-10.2) mg/dL Magnesium (1.6-2.3) mg/dL Total Bilirubin (0.2-1.3) mg/dL AST (17-59) U/L ALT (4-49) U/L Alkaline Phosphatase (38-126) U/L Troponin I <0.012 (0.000-0.034) ng/mL NT-Pro-B Natriuret Pep pg/mL Total Protein (6.3-8.2) g/dL Albumin (3.5-5.0) g/dL Disposition Clinical Impression: Chest pain Disposition: HOME SELF-CARE Condition: Fair Instructions (If sedation given, give patient instructions): Chest Pain (ED) Additional Instructions: Please return with any new or worsening symptoms. Please follow closely with your primary care provider. Is patient prescribed a controlled substance at d/c from ED?: No Referrals: Sergio Alexander III, MD [Primary Care Provider] - 1-2 days Time of Disposition: 20:13
[2024-12-14 18:00] LABS: Basophils # (A) 0.06 10*3/uL (0.00-0.10); Basophils % (A) 0.5 %; Eosinophils # (A) 0.10 10*3/uL (0.04-0.35); Eosinophils % (A) 0.8 %; HCT 44.8 % (39.6-50.0); HGB 15.2 g/dL (13.0-17.0); Lymphocytes # (A) 1.00 10*3/uL (0.90-5.00); Lymphocytes % (A) 8.3 %; MCH 31.3 pg (27.0-32.0); MCHC 33.9 g/dL (32.0-37.0); MCV 92.2 fL (80.0-97.0); Monocytes # (A) 0.55 10*3/uL (0.20-1.00); Monocytes % (A) 4.6 %; Neutrophils # (A) 10.30 10*3/uL (1.80-7.70); Neutrophils % (A) 85.5 %; Platelet Count 302 10*3/uL (140-440); RBC 4.86 10*6/uL (4.40-5.60); RDW 12.6 % (11.5-14.5); WBC 12.05 10*3/uL (4.50-10.00)
[2024-12-14 18:17] LABS: ALT 61 U/L (4-49); African American GFR (CKD) >90 (>60 ml/min/1.73 sqM); Albumin 4.1 g/dL (3.5-5.0); Anion Gap 8 mmol/L; Blood Urea Nitrogen 13 mg/dL (9-20); Calcium 8.9 mg/dL (8.4-10.2); Carbon Dioxide 30 mmol/L (22-30); Chloride 97 mmol/L (98-107); Glucose 97 mg/dL (74-99); Non-African American GFR(CKD) >90 (>60 ml/min/1.73 sqM); Sodium 135 mmol/L (137-145); Total Protein 7.4 g/dL (6.3-8.2)
[2024-12-14 18:19] LABS: AST 126 U/L (17-59); Alkaline Phosphatase 103 U/L (38-126); Magnesium 1.9 mg/dL (1.6-2.3); Potassium 4.7 mmol/L (3.5-5.1)
[2024-12-14 18:24] LABS: NT-Pro-B-Type Natriuretic Pept 106 pg/mL
[2024-12-14 18:37] LABS: INR 1.0 (<1.2); Partial Thromboplastin Time 22.5 sec (22.0-30.0); Prothrombin Time 11.0 sec (10.0-12.5)
--- NOTE | 2024-12-14 18:47 | XR ---
O EXAMINATION TYPE: XR chest 2V DATE OF EXAM: 12/14/2024 6:38 PM COMPARISON: 06/05/2024 CLINICAL INDICATION: Male, 68 years old with history of Chest Pain: Shortness of breath TECHNIQUE: XR chest 2V views of the chest are obtained. FINDINGS: Scattered senescent parenchymal changes noted. Hyperinflation compatible with COPD. No evidence for infiltrate. No evidence for atelectasis. Heart size is stable. Mediastinal structures are stable and grossly unremarkable. No evidence for hilar prominence. Degenerative changes dorsal spine. IMPRESSION: 1. No evidence for acute pulmonary disease. [facility], , 12/14/2024 6:44 PM
--- NOTE | 2024-12-14 19:33 | CT ---
EXAMINATION TYPE: CT angio chest DATE OF EXAM: 12/14/2024 7:13 PM COMPARISON: None. CLINICAL INDICATION: Male, 68 years old with history of CP/Pos dimer, CHEST PAIN, POS DIMER, TECHNIQUE: Axial CT was performed with sagittal and coronal reformats. 3D reconstruction and/or MIP imaging was also performed on a separate workstation. IV CONTRAST: with IV Contrast, patient injected with 100 ML mL of Isovue 370. (None if empty) CT DLP: 418.2 mGycm, Automated exposure control for dose reduction was used. FINDINGS: PULMONARY ARTERIES: The pulmonary arteries and their major tributaries are patent. I do not see marleen dence for sizable filling defect to suggest pulmonary embolic process. LUNGS: Nodular infiltrate right lower lobe. No evidence for atelectasis. No pulmonary nodule or ma ss is detected. No pleural effusion. MEDIASTINUM: Small mediastinal mass 4 x 2 cm thymoma is not excluded. Thoracic aorta is of normal c aliber,however, evaluation is limited given timing of the contrast bolus. If there is concern for th oracic aortic pathology consider GÉNESIS. Correlate clinically. No evidence for mediastinal mass. No m ediastinal lymph nodes greater than 1cm. HEART: Size within normal limits. No significant coronary artery calcifications. HILAR STRUCTURES: No evidence for mass. No hilar lymph nodes greater than 1 cm. UPPER ABDOMEN: No significant abnormality is seen. IMPRESSION: 1. No evidence for Pulmonary embolism at this time. 2. Small mediastinal mass 4 x 2 cm thymoma is not excluded. 3. Nodular infiltrate right lower lobe [facility], , 12/14/2024 7:30 PM
[2024-12-14 20:14] VITALS: BP 195/108; PULSE 95; RESP 19
[2024-12-14 20:17] VITALS: TEMP 97.7
== END 2024-12-14 20:36 | disposition home or self-care (01) ==
LOC: EC 17:15
DX: R07.89 Other chest pain (principal); Z87.891 Personal history of nicotine dependence
CPT/HCPCS: 36415; 93005; 85379; 83880; 80053; 83735; 84484; 85025; 85610; 85730; 71046; 71275; 99285; Q9967